=== PATIENT | male | born 1965 | race Caucasian/White ===

== ENCOUNTER 2017-10-13 15:46 | Observation (INO) | payer SELFPAY ==
[~2017-10-13] VITALS: Ht 185.4 cm; Wt 90.0 kg
[2017-10-13 16:15] VITALS: BP 134/82; PULSE 98; RESP 20; O2SAT 98
[2017-10-13 16:26] VITALS: BP 179/91; PULSE 98; RESP 19; TEMP 98.8; O2SAT 99
[2017-10-13] MEDS ORDERED: LISI10TA PO (16:32)
[2017-10-13] MEDS ORDERED: TYLETAB34 PO (16:34)
[2017-10-13 16:45] VITALS: BP 155/80; PULSE 96; RESP 18; O2SAT 99
[2017-10-13] MEDS ORDERED: SODIUM CHLOR 0.9% 1000 ML INJ 1,000 ML IV ONE ×2 (17:30)
[2017-10-13 17:42] LABS: AUTOMATED NEUTROPHIL # 11.9 TH/MM3 (1.8-7.7); BASOPHIL % 0.2 % (0.0-2.0); EOSINOPHIL % 0.1 % (0.0-4.0); HEMATOCRIT 42.2 % (39.0-51.0); HEMOGLOBIN 14.7 GM/DL (13.0-17.0); LYMPH % 10.6 % (9.0-44.0); LYMPHOCYTE # 1.5 TH/MM3 (1.0-4.8); MEAN CORPUSCULAR HEMOGLOBIN 31.7 PG (27.0-34.0); MEAN CORPUSCULAR HGB CONC 34.9 % (32.0-36.0); MEAN PLATELET VOLUME 8.7 FL (7.0-11.0); MONOCYTE # 0.9 TH/MM3 (0-0.9); NEUT % 83.1 % (16.0-70.0); PLATELET COUNT 290 TH/MM3 (150-450); RED BLOOD COUNT 4.63 MIL/MM3 (4.50-5.90); RED CELL DISTRIBUTION WIDTH 12.6 % (11.6-17.2); WHITE BLOOD COUNT 14.3 TH/MM3 (4.0-11.0)
[2017-10-13 18:05] LABS: BLOOD UREA NITROGEN 15 MG/DL (7-18); CALCIUM 9.6 MG/DL (8.5-10.1); CHLORIDE 99 MEQ/L (98-107); CREATININE 1.09 MG/DL (0.60-1.30); GLOMERULAR FILTRATION RATE 71 ML/MIN (>89); GLUCOSE,RANDOM 133 MG/DL (74-106); SODIUM (NA) 135 MEQ/L (136-145)
--- NOTE | 2017-10-13 18:07 | PD ---
HPI Chief Complaint: Dizziness Time Seen by Provider: 17:19 Travel History International Travel<30 days: No Contact w/Intl Traveler<30days: No Traveled to known affect area: No History of Present Illness HPI This is a 52-year-old male with a history of chronic back pain, presents today after having a syncopal episode while at a restaurant. Patient apparently was eating with his friend when he suddenly became lightheaded and pale. Friend states that he passed out for roughly 2 minutes total. When he awoke, there was no postictal state. He did not recall actually passing out but did really remember feeling funny. Friend thought that he was either vasovagal or was mildly dehydrated. He states that they brought him home and he had a second episode where he nearly passed out. His friend who is a accessibility lift technician states he checked his pulse and blood pressure. His systolic blood pressure was 80. He states that he felt an irregular pulse and was concerned that this may be atrial fibrillation. He reports that he started to regain his function and they drove here for further evaluation. The patient denies any pain. He denies any history of abnormal heart rhythm or previous syncopal episodes. There are no other complaints at time of examination. PFSH Past Medical History Asthma: No Autoimmune Disease: No Cardiovascular Problems: Yes COPD: No Genitourinary: No Hypertension: Yes Musculoskeletal: Yes Neurologic: Yes (herniated discs) Respiratory: Yes Past Surgical History Oral Surgery: Yes Other Surgery: Yes Social History Alcohol Use: Yes (WINE 4 GLASSES A WEEK 02/23/05) Tobacco Use: No Substance Use: No Allergies-Medications (Allergen,Severity, Reaction): Coded Allergies: No Known Allergies (Verified Allergy, Severe, 03/02/05) Reported Meds & Prescriptions Reported Meds & Active Scripts Active Reported Tylenol-Codeine #3 (Acetaminophen-Codeine) 300-30 mg Tab 1 Tab PO Q4H PRN Review of Systems Except as stated in HPI: all other systems reviewed are Neg General / Constitutional: No: Fever, Chills HENT: Positive: Lightheadedness, No: Headaches, Neck Pain Cardiovascular: Positive: Syncope, No: Chest Pain or Discomfort, Palpitations, Irregular Rhythm Respiratory: No: Cough, Shortness of Breath Gastrointestinal: No: Nausea, Vomiting, Abdominal Pain Genitourinary: No: Dysuria Musculoskeletal: No: Weakness, Pain Neurologic: Positive: Syncope, No: Dizziness, Headache, Change in Mentation Physical Exam Narrative GENERAL: Well developed well-nourished male in no acute respiratory distress. SKIN: Focused skin assessment warm/dry. HEAD: Atraumatic. Normocephalic. EYES: Pupils equal and round. No scleral icterus. No injection or drainage. ENT: No nasal bleeding or discharge. Mucous membranes pink and moist. NECK: Trachea midline. No JVD. CARDIOVASCULAR: Sinus tachycardia rate in the low 100s. RESPIRATORY: No accessory muscle use. Clear to auscultation. Breath sounds equal bilaterally. GASTROINTESTINAL: Abdomen soft, non-tender, nondistended. Hepatic and splenic margins not palpable. MUSCULOSKELETAL: No obvious deformities. No clubbing. No cyanosis. No edema. NEUROLOGICAL: Awake and alert. No obvious cranial nerve deficits. Motor grossly within normal limits. Normal speech. Data Data Last Documented VS Vital Signs Date Time Temp Pulse Resp B/P (MAP) Pulse Ox O2 Delivery O2 Flow Rate FiO2 10/13/17 19:19 106 16 98 Room Air 10/13/17 16:45 155/80 (105) 10/13/17 16:26 98.8 Orders Orders Complete Blood Count With Diff (10/13/17 17:22) Basic Metabolic Panel (Bmp) (10/13/17 17:22) Sodium Chlor 0.9% 1000 Ml Inj (Ns 1000 M (10/13/17 17:30) Sodium Chlor 0.9% 1000 Ml Inj (Ns 1000 M (10/13/17 17:30) Electrocardiogram (10/13/17 16:33) Drug Screen, Random Urine (10/13/17 17:53) Ckmb (Isoenzyme) Profile (10/13/17 17:25) Troponin I (10/13/17 17:25) Oxycodone-Acetamin 10-325 Mg (Percocet 1 (10/13/17 19:30) Diclofenac (Paulo Jacobsen) (10/13/17 19:30) Admit Order (Ed Use Only) (10/13/17 19:29) Labs Laboratory Tests Test 10/13/17 17:25 10/13/17 17:55 White Blood Count 14.3 TH/MM3 Red Blood Count 4.63 MIL/MM3 Hemoglobin 14.7 GM/DL Hematocrit 42.2 % Mean Corpuscular Volume 91.0 FL Mean Corpuscular Hemoglobin 31.7 PG Mean Corpuscular Hemoglobin Concent 34.9 % Red Cell Distribution Width 12.6 % Platelet Count 290 TH/MM3 Mean Platelet Volume 8.7 FL Neutrophils (%) (Auto) 83.1 % Lymphocytes (%) (Auto) 10.6 % Monocytes (%) (Auto) 6.0 % Eosinophils (%) (Auto) 0.1 % Basophils (%) (Auto) 0.2 % Neutrophils # (Auto) 11.9 TH/MM3 Lymphocytes # (Auto) 1.5 TH/MM3 Monocytes # (Auto) 0.9 TH/MM3 Eosinophils # (Auto) 0.0 TH/MM3 Basophils # (Auto) 0.0 TH/MM3 CBC Comment DIFF FINAL Differential Comment Blood Urea Nitrogen 15 MG/DL Creatinine 1.09 MG/DL Random Glucose 133 MG/DL Calcium Level 9.6 MG/DL Sodium Level 135 MEQ/L Potassium Level 3.9 MEQ/L Chloride Level 99 MEQ/L Carbon Dioxide Level 23.0 MEQ/L Anion Gap 13 MEQ/L Estimat Glomerular Filtration Rate 71 ML/MIN Total Creatine Kinase 77 U/L Troponin I LESS THAN 0.02 NG/ML Urine Opiates Screen POS Urine Barbiturates Screen NEG Urine Amphetamines Screen NEG Urine Benzodiazepines Screen NEG Urine Cocaine Screen NEG Urine Cannabinoids Screen POS MDM Medical Decision Making Medical Screen Exam Complete: Yes Emergency Medical Condition: Yes Differential Diagnosis Vasovagal syncope versus cardiac dysrhythmia versus metabolic derangement Narrative Course 52-year-old male presents today after having syncopal episode and a following near syncopal episode. Patient was tachycardic when he presented. He was given 2 L of IV fluid and still remains tachycardic with heart rate of 100. Given this, patient will be admitted. I discussed case with the on-call hospitalist who is agreeable for an observation admission. The patient has no prior history of syncope. He does have acute on chronic back pain. He was given Voltaren and Percocet for his chronic back pain. Diagnosis Primary Impression: Syncope Additional Impressions: HTN (hypertension) Chronic back pain Admitting Information Admitting Physician Requests: Observation Montana Novoa MD Oct 13, 2017 18:07
[2017-10-13 18:21] LABS: TROPONIN I LESS THAN 0.02 NG/ML (0.02-0.05)
[2017-10-13] MEDS ORDERED: DICLOFENAC SODIUM 50 MG DELAYED RELEASE TAB PO ONE (19:30)
[2017-10-13] MEDS ORDERED: oxyCODONE/ACETAMINOPHEN 10 MG/325 MG TAB PO ONE (19:30)
[2017-10-13] MEDS ORDERED: NALOXONE HCL 0.4 MG/ML AMP IV PUSH PRN (20:00)
[2017-10-13] MEDS ORDERED: ACETAMINOPHEN 325 MG TAB PO PRN (20:00)
[2017-10-13] MEDS ORDERED: ONDANSETRON HCL 4 MG/2 ML VIAL IVP PRN (20:00)
[2017-10-13] MEDS ORDERED: SODIUM CHLORIDE 0.9% FLUSH 10 ML FLUSH IV FLUSH PRN (20:00)
[2017-10-13 20:40] VITALS: BP 152/76; PULSE 104; RESP 16; O2SAT 100
--- NOTE | 2017-10-13 21:15 | HHI.HP ---
[facility] Jose Elias Dinero MD Admission Diagnosis syncope, persistant tachycardia, chronic back pain Diagnoses: Travel History International Travel<30 Days: No Contact w/Intl Traveler <30 Da: No Traveled to Known Affected Are: No History of Present Illness 52-year-old male with a past medical history significant for hypertension and degenerative disc disease presents to the emergency department for evaluation of a syncopal episode. Patient reports that he was at 120 felt dizzy, faint and diaphoretic. He slumped over and lost consciousness for approximately 2 minutes which was witnessed by a friend. No seizure-like activity. No loss of bowel/bladder. The patient decided to go home to rest and he was lying on the couch. When he went to sit up from lying down he became diaphoretic and dizzy again. This time he did not lose consciousness. His friend took his blood pressure and found it to be 84/52. The patient takes antihypertensive medication and an unspecified narcotic for his back pain. He denies any chest pain or shortness of breath. No nausea/vomiting/diarrhea/abdominal pain. No lateralizing signs/symptoms. No fever/chills. Review of Systems Except as stated in HPI: all other systems reviewed are Neg Past Family Social History Past Medical History Hypertension Degenerative disc disease Past Surgical History Back surgery Tonsillectomy Reported Medications Reported Meds & Active Scripts Active Reported Tylenol-Codeine #3 (Acetaminophen-Codeine) 300-30 mg Tab 1 Tab PO Q4H PRN Lisinopril-Hctz 10-12.5 Mg Tab Unknown Dose PO DAILY Allergies: Coded Allergies: No Known Allergies (Verified Allergy, Severe, 03/02/05) Family History Negative for CAD/DM Social History Negative for tobacco. Occasional alcohol. Denies all illicit drugs Physical Exam Vital Signs Vital Signs Date Time Temp Pulse Resp B/P (MAP) Pulse Ox O2 Delivery O2 Flow Rate FiO2 10/13/17 20:40 104 16 152/76 (101) 100 Room Air 10/13/17 19:19 106 16 98 Room Air 4/26/18 16:45 96 18 155/80 (105) 99 Room Air 10/13/17 16:26 98.8 98 19 179/91 (120) 99 Room Air 10/13/17 16:15 98 20 134/82 (99) 98 Physical Exam GENERAL: male sitting up in bed SKIN: No rashes, ecchymoses or lesions. Cool and dry. HEAD: Atraumatic. Normocephalic. No temporal or scalp tenderness. EYES: Pupils equal round and reactive. Extraocular motions intact. No scleral icterus. No injection or drainage. ENT: Nose without bleeding, purulent drainage or septal hematoma. Throat without erythema, tonsillar hypertrophy or exudate. Uvula midline. Airway patent. NECK: Trachea midline. No JVD or lymphadenopathy. Supple, nontender, no meningeal signs. CARDIOVASCULAR: Regular rate and rhythm without murmurs, gallops, or rubs. RESPIRATORY: Clear to auscultation. Breath sounds equal bilaterally. No wheezes , rales, or rhonchi. GASTROINTESTINAL: Abdomen soft, non-tender, nondistended. No hepato-splenomegaly , or palpable masses. No guarding. MUSCULOSKELETAL: Extremities without clubbing, cyanosis, or edema. No joint tenderness, effusion, or edema noted. No calf tenderness. NEUROLOGICAL: Awake and alert. Cranial nerves II through XII intact. Motor and sensory grossly within normal limits. Normal speech. Laboratory Laboratory Tests Test 10/13/17 17:25 10/13/17 17:55 White Blood Count 14.3 Red Blood Count 4.63 Hemoglobin 14.7 Hematocrit 42.2 Mean Corpuscular Volume 91.0 Mean Corpuscular Hemoglobin 31.7 Mean Corpuscular Hemoglobin Concent 34.9 Red Cell Distribution Width 12.6 Platelet Count 290 Mean Platelet Volume 8.7 Neutrophils (%) (Auto) 83.1 Lymphocytes (%) (Auto) 10.6 Monocytes (%) (Auto) 6.0 Eosinophils (%) (Auto) 0.1 Basophils (%) (Auto) 0.2 Neutrophils # (Auto) 11.9 Lymphocytes # (Auto) 1.5 Monocytes # (Auto) 0.9 Eosinophils # (Auto) 0.0 Basophils # (Auto) 0.0 CBC Comment DIFF FINAL Differential Comment Blood Urea Nitrogen 15 Creatinine 1.09 Random Glucose 133 Calcium Level 9.6 Sodium Level 135 Potassium Level 3.9 Chloride Level 99 Carbon Dioxide Level 23.0 Anion Gap 13 Estimat Glomerular Filtration Rate 71 Total Creatine Kinase 77 Troponin I LESS THAN 0.02 Urine Opiates Screen POS Urine Barbiturates Screen NEG Urine Amphetamines Screen NEG Urine Benzodiazepines Screen NEG Urine Cocaine Screen NEG Urine Cannabinoids Screen POS Result Diagram: 10/13/17172410/13/171724 Caprin[place] VTE Risk Assessment Caprini VTE Risk Assessment: No/Low Risk (score <= 1) Caprini Risk Assessment Model Point Value = 1 Point Value = 2 Point Value = 3 Point Value = 5 Age 41-60 Minor surgery BMI > 25 kg/m2 Swollen legs Varicose veins or History of unexplained or recurrent spontaneous Oral contraceptives or hormone replacement Sepsis (< 1 month) Serious lung disease, including pneumonia (< 1 month) Abnormal pulmonary function Acute myocardial infarction Congestive heart failure (< 1 month) History of inflammatory bowel disease Medical patient at bed rest Age 61-74 Arthroscopic surgery Major open surgery (> 45 min) Laparoscopic surgery (> 45 min) Malignancy Confined to bed (> 72 hours) Immobilizing plaster cast Central venous access Age >= 75 History of VTE Family history of VTE Factor V Leiden Prothrombin [id number] Lupus anticoagulant Anticardiolipin antibodies Elevated serum homocysteine Heparin-induced thrombocytopenia Other congenital or acquired thrombophilia Stroke (< 1 month) Elective arthroplasty Hip, pelvis, or leg fracture Acute spinal cord injury (< 1 month) Prophylaxis Regimen Total Risk Factor Score Risk Level Prophylaxis Regimen 0-1 Low Early ambulation 2 Moderate Order ONE of the following: *Sequential Compression Device (SCD) *Heparin 5000 units SQ BID 3-4 Higher Order ONE of the following medications: *Heparin 5000 units SQ TID *Enoxaparin/Lovenox 40 mg SQ daily (WT < 150 kg, CrCl > 30 mL/min) *Enoxaparin/Lovenox 30 mg SQ daily (WT < 150 kg, CrCl > 10-29 mL/min) *Enoxaparin/Lovenox 30 mg SQ BID (WT < 150 kg, CrCl > 30 mL/min) AND/OR *Sequential Compression Device (SCD) 5 or more Highest Order ONE of the following medications: *Heparin 5000 units SQ TID (Preferred with Epidurals) *Enoxaparin/Lovenox 40 mg SQ daily (WT < 150 kg, CrCl > 30 mL/min) *Enoxaparin/Lovenox 30 mg SQ daily (WT < 150 kg, CrCl > 10-29 mL/min) *Enoxaparin/Lovenox 30 mg SQ BID (WT < 150 kg, CrCl > 30 mL/min) AND *Sequential Compression Device (SCD) Assessment and Plan Assessment and Plan Assessment/plan: 1. Syncope Unclear etiology May be vasovagal or secondary to orthostatic hypotension Orthostatic vital signs pending Carotid ultrasound/echo pending 2. Tachycardia Unclear etiology Patient in normal sinus rhythm Telemetry 3. Hypertension Continue lisinopril-HCTZ as patient currently hypertensive FEN Heart healthy diet Electrolytes: Monitor and replete as needed Shena Davies MD Oct 13, 2017 21:15
[2017-10-13 22:03] VITALS: BP_SYST 115; BP_SYST 122; BP_SYST 130; BP_DIAS 69; BP_DIAS 77; BP_DIAS 78; PULSE 95; RESP 18; TEMP 98.6; O2SAT 98
--- NOTE | 2017-10-13 22:18 | RADRPT ---
EXAM DATE/TIME: 10/13/2017 20:47 [facility] COMPARISON: No previous studies available for comparison. INDICATIONS : Syncope MEDICAL HISTORY : Herniated discs. SURGICAL HISTORY : None. ENCOUNTER: Initial ACUITY: 1 day PAIN SCORE: 0/10 LOCATION: Bilateral neck PEAK SYSTOLIC VELOCITIES (cm/sec): ICA/CCA RATIO: Right: 1.36 Left: 1.39 ICA: Right: 163 Left: 175 CCA: Right: 120 Left: 126 ECA: Right: 129 Left: 168 VERTEBRAL: Right: 59 antegrade Left: 60 antegrade Elevated flow velocities and ICA/CCA ratios have been found to correlate with increased degrees of vessel stenosis, calculated as percentage of diameter relative to a normal segment of distal ICA/CCA FINDINGS: RIGHT CAROTID: No significant stenosis is visualized. The waveforms are within normal limits. LEFT CAROTID: No significant stenosis is visualized. The waveforms are within normal limits. VERTEBRAL ARTERIES: Antegrade flow is seen in both vertebral arteries. MISCELLANEOUS: None. CONCLUSION: No significant plaque or narrowing. Ian Corral MD on October 13, 2017 at 22:15 Board Certified Radiologist. This report was verified electronically.
[2017-10-13] MEDS: ACETAMINOPHEN/HYDROcodone 325 MG/7.5 MG TAB PO PRN (22:22)
[2017-10-13] MEDS: SODIUM CHLORIDE 0.9% FLUSH 10 ML FLUSH IV FLUSH SCH (22:23)
[2017-10-14] VITALS (9 sets, daily range): BP systolic 115–135; BP diastolic 56–87; PULSE 72–87; RESP 16–18; TEMP 97.8–98.7; O2SAT 97–99
[2017-10-14] MEDS: ACETAMINOPHEN/HYDROcodone 325 MG/7.5 MG TAB PO PRN ×6 (02:20→22:43)
[2017-10-14 07:18] LABS: AUTOMATED NEUTROPHIL # 3.1 TH/MM3 (1.8-7.7); BASOPHIL % 0.5 % (0.0-2.0); EOSINOPHIL % 0.6 % (0.0-4.0); HEMATOCRIT 38.2 % (39.0-51.0); HEMOGLOBIN 13.6 GM/DL (13.0-17.0); LYMPH % 42.7 % (9.0-44.0); LYMPHOCYTE # 2.8 TH/MM3 (1.0-4.8); MEAN CELL VOLUME 89.9 FL (80.0-100.0); MEAN CORPUSCULAR HGB CONC 35.6 % (32.0-36.0); MEAN PLATELET VOLUME 8.3 FL (7.0-11.0); MONO % 8.6 % (0.0-8.0); MONOCYTE # 0.6 TH/MM3 (0-0.9); NEUT % 47.6 % (16.0-70.0); PLATELET COUNT 254 TH/MM3 (150-450); RED BLOOD COUNT 4.25 MIL/MM3 (4.50-5.90); RED CELL DISTRIBUTION WIDTH 12.6 % (11.6-17.2); WHITE BLOOD COUNT 6.5 TH/MM3 (4.0-11.0)
[2017-10-14 07:54] LABS: BICARBONATE 26.5 MEQ/L (21.0-32.0); CALCIUM 9.3 MG/DL (8.5-10.1); CREATININE 0.8 MG/DL (0.60-1.30)
[2017-10-14] MEDS ORDERED: LISINOPRIL 10 MG TAB PO SCH (09:00)
[2017-10-14] MEDS: SODIUM CHLORIDE 0.9% FLUSH 10 ML FLUSH IV FLUSH SCH ×2 (09:00→22:43)
[2017-10-14] MEDS ORDERED: HYDROCHLOROTHIAZIDE 12.5 MG CAP PO SCH (09:00)
--- NOTE | 2017-10-14 10:28 | HHI.PR ---
Subjective Remarks Follow-up on patient with syncopal episode. Patient seen and examined. Patient denies any acute medical complaints at this time. States he did get up once earlier this morning to use the urinal at the bedside and did not have any episodes of dizziness or lightheadedness. He denies any fever or chills. He denies any chest pain or dyspnea. He denies any nausea, vomiting or abdominal pain. He denies any urinary to bowel difficulties. Patient reports being at [facility] yesterday sitting down eating a salad when snf through the meal patient became diaphoretic, dizzy lost his vision and passed out for several minutes. Patient denies any associated palpitations, chest pain, shortness of breath, nausea or vomiting. Shortly after returning home, patient had a similar episode when getting up from a supine position. He reports his friend who is a tearer checked his pulse and told him that he had an irregular rhythm. He denies any seizure activity, loss of bowel or bladder incontinence, tongue biting, postictal confusion. Objective Vitals Vital Signs Date Time Temp Pulse Resp B/P (MAP) Pulse Ox O2 Delivery O2 Flow Rate FiO2 10/14/17 09:41 20 10/14/17 07:41 98.7 72 18 118/78 (91) 98 10/14/17 03:47 98.4 77 16 119/56 (77) 98 10/14/17 03:18 75 10/14/17 00:33 98.5 86 16 118/70 (86) 97 10/14/17 00:01 87 10/13/17 22:03 98.6 95 18 122/69 (86) 98 130/77 (94) 115/78 (90) 10/13/17 21:38 10/13/17 20:40 104 16 152/76 (101) 100 Room Air 10/13/17 19:19 106 16 98 Room Air 10/13/17 16:45 96 18 155/80 (105) 99 Room Air 10/13/17 16:26 98.8 98 19 179/91 (120) 99 Room Air 10/13/17 16:15 98 20 134/82 (99) 98 Result Diagram: 10/14/17 0622 10/14/1722 Imaging Last Impressions Carotid Artery Ultrasound 10/13/17 0000 Signed Impressions: Service Date/Time: September 20:47 - CONCLUSION: No significant plaque or narrowing. Ian Corral MD Objective Remarks GENERAL: Well-developed well-nourished male patient, in no acute distress. Awake and alert. Lying in hospital bed. SKIN: No rashes, ecchymoses or lesions. Cool and dry. HEAD: Atraumatic. Normocephalic. No temporal or scalp tenderness. EYES: Pupils equal round and reactive. Extraocular motions intact. No scleral icterus. No injection or drainage. ENT: Nose without bleeding or purulent drainage. Airway patent. MMM. NECK: Trachea midline. No JVD or lymphadenopathy. Supple, nontender, no meningeal signs. CARDIOVASCULAR: Regular rate and rhythm without murmurs, gallops, or rubs. RESPIRATORY: Clear to auscultation. Breath sounds equal bilaterally. No wheezes , rales, or rhonchi. GASTROINTESTINAL: Abdomen soft, non-tender, nondistended. No hepato-splenomegaly , or palpable masses. No guarding. MUSCULOSKELETAL: Extremities without clubbing, cyanosis, or edema. No calf tenderness. NEUROLOGICAL: Awake and alert. Cranial nerves II through XII grossly intact. Motor and sensory grossly within normal limits. Normal speech. PSYCHIATRIC: Appropriate mood and affect. Normal judgement and insight. Procedures None Medications and IVs Current Medications Medications (Trade) Dose Ordered Sig/Yanick Route Start Time Stop Time Status Last Admin (NS Flush) 2 ml UNSCH PRN IV FLUSH 10/13/17 20:00 (NS Flush) 2 ml BID IV FLUSH 10/13/17 21:00 10/13/17 22:23 (Tylenol) 650 mg Q4H PRN PO 10/13/17 20:00 (Zofran Inj) 4 mg Q6H PRN IVP 10/13/17 20:00 (Narcan Inj) 0.4 mg UNSCH PRN IV PUSH 10/13/17 20:00 (Prinivil) 10 mg DAILY PO 10/14/17 09:00 Future Hold (Microzide) 12.5 mg DAILY PO 10/14/17 09:00 Future Hold ([place] 7.5-325 Mg) 1 tab Q4H PRN PO 10/13/17 21:15 10/14/17 06:25 A/P Assessment and Plan 52-year-old male with a past medical history significant for hypertension and degenerative disc disease presents to the emergency department for evaluation of a syncopal episode. Syncope Unclear etiology, may be vasovagal or secondary to orthostatic hypotension or opiate/THC related UDS positive for opiates and cannabis Patient reports episode of diaphoresis, dizziness, tunnel vision, reported abnormal rhythm followed by syncopal episode of 2mins duration Orthostatic vital signs negative Carotid ultrasound negative for hemodynamically significant stenosis -Given concern for possible arrhythmogenic etiology of patient's syncopal episode will consult cardiology. Appreciate recommendations. -Repeat orthostatic vital signs -Follow-up on echocardiogram results -Holter monitor -PT eval/tx Tachycardia Unclear etiology, possibly situational Patient in normal sinus rhythm -continue to monitor on telemetry Leukocytosis, resolved Suspect reactive Patient is afebrile -Continue to monitor white count as indicated Hyponatremic Resolved status post IV fluids Hypertension, currently normotensive -Hold patient's home lisinopril-HCTZ for now -Continue to monitor BP and adjust treatment accordingly Chronic back pain -[place] as needed FEN Heart healthy diet Electrolytes: Monitor and replete as needed Discharge Planning Discharge pending completion of workup and cardiology clearance Angie Hawkins Oct 14, 2017 10:28
--- NOTE | 2017-10-14 11:37 | MB ---
cc: Rolando Castle DO DATE: 10/14/2017 REASON FOR CONSULTATION: Syncope. HISTORY OF PRESENT ILLNESS: Aguilar Schulz is a pleasant 52-year-old male who presented to [facility] Emergency Room on 10/13/2017 after 2 syncopal episodes. He states that he had a normal day and friends were visiting from out of town. They were out to lunch and he had eaten part of his meal. He started feeling lightheaded, having some tunnel vision and diaphoretic, but no chest pain, shortness of breath or palpitations. He then passed out for approximately 2 minutes. During this, no seizure activity or loss of bowel or bladder. When he came to, there was no postictal phase. He just felt overall weak. EMS had been called at the time, but they decided that he was feeling a little bit better and so they canceled EMS. He went home and was resting on the couch and felt like he had to use the restroom. He went from laying down to sitting and had a similar type feeling that he was going to pass out, but did not pass out this time. He felt extremely dizzy and his friend states that he was extremely diaphoretic. His friend took his blood pressure and it was around 80/50. He also felt his pulse and felt that it was somewhat irregular. Because of that, he was brought to the emergency room. On arrival to the emergency room, blood pressure and heart rate were stable. In seeing him, he currently denies chest pain, shortness of breath, or palpitations at this time. Of note, he is on antihypertensives, but has been on lisinopril/hydrochlorothiazide for around 10 years without problems. He also takes pain medication for back pain and has taken them in the normal fashion in the past and has taken them in a similar manner for the past 4-5 weeks with no changes. PAST MEDICAL HISTORY: 1. Hypertension. 2. Degenerative disc disease. PAST SURGICAL HISTORY: 1. Back surgery. 2. Tonsillectomy. ALLERGIES: NO KNOWN DRUG ALLERGIES. MEDICATIONS: 1. Lisinopril/hydrochlorothiazide 10/12.5 mg daily. 2. Tylenol with codeine #3, 300/30 one tab every 4 hours as needed for pain. FAMILY HISTORY: Denies premature coronary artery disease or sudden cardiac within the family. SOCIAL HISTORY: The patient denies tobacco or illicit drug abuse. He has been on pain medication for his back for the past 4-5 weeks. He occasionally drinks alcohol. REVIEW OF SYSTEMS: Fourteen systems were reviewed including osteopathic pertinent positives and negatives as above, otherwise negative. PHYSICAL EXAMINATION: VITAL SIGNS: Temperature 98.7, heart rate 72, blood pressure 118/78, respirations 18, pulse oximetry 98% on room air. GENERAL: The patient appears well, no acute distress, alert, awake and oriented x 3. HEENT: Extraocular muscles intact. Mucous membranes moist. NECK: Supple. No JVD at 45 degrees. No carotid bruits heard bilaterally. Carotid upstroke is brisk in nature. HEART: Regular rate and rhythm. Positive first and second heart sounds with no murmurs, gallops or rubs. LUNGS: Clear to auscultation bilaterally. No wheezes, rales or rhonchi. ABDOMEN: Soft, nontender, nondistended. No organomegaly noted. EXTREMITIES: Show no clubbing, cyanosis or edema. Femoral and distal pulses are intact bilaterally. NEUROLOGIC: No focal deficits. SKIN: Warm, dry and intact. OSTEOPATHICALLY: No kyphoscoliosis, lordosis or paraspinal tender points. LABORATORY DATA: Hemoglobin 13.6, hematocrit 38.2, platelet 254. Potassium 3.9, BUN 12, creatinine 0.80. Troponin less than 0.02. Electrocardiogram (10/13/2017 16:33) sinus tachycardia, otherwise no significant ST-T wave changes. IMPRESSIONS: 1. Syncopal episode x 2. 2. Hypertension. RECOMMENDATIONS: 1. Mr. Schulz appears to have had 2 syncopal episodes which have an unclear etiology. 2. He did present slightly dehydrated, although the syncopal episode should not happen while sitting down and lying down due to dehydration. 3. I do not feel that he has any reason to have vasovagal syncope. 4. He does have concern with his symptoms of feeling like he is going to black out of neurocardiogenic syncope and I will have him evaluated by Dr. Yanes. Plan for a possible EP study in my discussion with Dr. Yanes. 5. We will check a 2-D echo to look at his overall left ventricular function, cardiac structure and possible valvulopathies. 6. We will continue to hold his lisinopril/hydrochlorothiazide at this time until further evaluation. Thank you for allowing me to see Aguilar Schulz. If there are any questions, please do not hesitate to call. Rolando Castle DO VGP/DL , 11:10 AM , 11:36 AM
--- NOTE | 2017-10-14 13:39 | EKG ---
Date Performed: 10/13/2017 Time Performed: 16:33:18 PTAGE: 52 years EKG: SINUS TACHYCARDIA ABNORMAL RHYTHM ECG NO PREVIOUS TRACING DOCTOR: Sharif Carrizales Interpretating Date/Time 10/14/2017 13:36:32
--- NOTE | 2017-10-14 14:27 | ECHRPT ---
Indication: Syncope CONCLUSIONS The left ventricular systolic function is low normal with an estimated ejection fraction in the rang e of 50- 55%. Trace mitral valve regurgitation. There is trace tricuspid valve regurgitation. Trivial pulmonary valve regurgitation. BP: 118 / 78 HR: 83 Rhythm: Sinus MEASUREMENTS (Male / Female) Normal Values Technical Quality:Fair 2D ECHO LV Diastolic Diameter PLAX 4.6 cm 4.2 - 5.9 / 3.9 - 5.3 cm LV Systolic Diameter PLAX 3.3 cm IVS Diastolic Thickness 0.9 cm 0.6 - 1.0 / 0.6 - 0.9 cm LVPW Diastolic Thickness 0.9 cm 0.6 - 1.0 / 0.6 - 0.9 cm LV Relative Wall Thickness 0.4 RV Internal Dim ED PLAX 3.6 cm LVOT Diameter 2.2 cm LA Systolic Diameter LX 2.6 cm 3.0 - 4.0 / 2.7 - 3.8 cm M-MODE Aortic Root Diameter MM 3.2 cm LA Systolic Diameter MM 2.9 cm LA Ao Ratio MM 0.9 AV Cusp Separation MM 2.3 cm DOPPLER AV Peak Velocity 98.9 cm/s AV Peak Gradient 3.9 mmHg LVOT Peak Velocity 83.3 cm/s LVOT Peak Gradient 2.8 mmHg AV Area Cont Eq pk 3.2 cm MV Area PHT 2.8 cm Mitral E Point Velocity 63.2 cm/s Mitral A Point Velocity 40.9 cm/s Mitral E to A Ratio 1.5 LV E' Lateral Velocity 10.1 cm/s Mitral E to LV E' Lateral Ratio 6.3 LV E' Septal Velocity 10.6 cm/s Mitral E to LV E' Septal Ratio 6.0 TR Peak Velocity 191.0 cm/s TR Peak Gradient 14.6 mmHg Right Atrial Pressure 10.0 mmHg Pulmonary Artery Systolic Pressu 24.6 mmHg Right Ventricular Systolic Press 24.6 mmHg FINDINGS LEFT VENTRICLE The left ventricular systolic function is low normal with an estimated ejection fraction in the rang e of 50- 55%. Wall thickness is normal. Normal left ventricular size. No obvious wall motion abnormalities RIGHT VENTRICLE Normal right ventricular size and systolic function. LEFT ATRIUM The left atrial size is normal. RIGHT ATRIUM The right atrial size is normal. ATRIAL SEPTUM Normal atrial septal thickness AORTA The aortic root and proximal ascending aorta are normal in size on limited imaging. MITRAL VALVE Structurally normal mitral valve. Trace mitral valve regurgitation. No mitral valve stenosis. AORTIC VALVE Trileaflet aortic valve. No aortic valve stenosis. TRICUSPID VALVE Structurally normal tricuspid valve. There is trace tricuspid valve regurgitation. The estimated pulmonary arterial pressure is 24.6 mmHg. PULMONARY VALVE Trivial pulmonary valve regurgitation. VESSELS The inferior vena cava is normal in size. PERICARDIUM No pericardial effusion. Rolando Castle DO (Electronically Signed) Final Date:14 October 2017 14:26
--- NOTE | 2017-10-14 15:17 | MB ---
cc: Marco Yanes MD, Jose R MD DATE: 10/14/2017 REASON FOR CONSULTATION: Syncopal episode. HISTORY OF PRESENT ILLNESS: Mr. Schulz is a 52-year-old gentleman with history of high blood pressure, previous back surgery. He was at a restaurant, felt dizzy and fainted. He completely passed out, based on his friend, for at least 2 minutes. They decided not to call 911. They went home. Sitting in the car the same episode happened again and at that point, he decided to come to the emergency room. There was not loss of sphincter control and no seizing. The patient was evaluated by Dr. Castle who believed this is not hypotension nor dehydration and patient was consulted for evaluation. The chart was reviewed. The patient was evaluated. The patient did not drink any alcohol. ALLERGIES: None. SOCIAL HISTORY: The patient has an occasional drink. FAMILY HISTORY: Noncontributory to his current medical condition. MEDICATIONS: He is takin. Tylenol # 3 p.r.n. 2. Lisinopril/hydrochlorothiazide. REVIEW OF SYSTEMS: He referred no chest pain, no chest discomfort, no palpitation. No dizziness. No seizures. No vomiting. PHYSICAL EXAMINATION: GENERAL: Alert, fully oriented. VITAL SIGNS: Blood pressure is 122/77, pulse 76, respiratory rate 18. LUNGS: Ventilated. CARDIOVASCULAR: S1, S2. No gallop. No murmur. ABDOMEN: Soft. No mass. No bruits. EXTREMITIES: No edema. LABORATORY DATA: Electrocardiogram shows sinus rhythm, rate in the low 100s. No acute ST and T-wave changes. LABORATORY DATA: Hemoglobin is 13.6, white blood cell 6.5. Toxicology positive for cannabis and urine positive for opioid screen, yet the patient is taking Tylenol #3. Potassium 3.9, creatinine 0.80. Troponin less than 0.2. ASSESSMENT AND RECOMMENDATIONS: Mr. Schulz had a syncopal episode. There was no warning. He referred in the past some dizziness and near-syncope. Blood pressure currently adequate. There is no acute ST and T-wave changes. I had a long conversation with him as well as Dr. Castle. Electrophysiology study will be obtained. If no conduction disease is found or no arrhythmia induced, then the gentleman would need a loop recorder. The risks, the nature and the benefits of the procedure were clearly stated to him. Risks include pneumothorax, cardiac perforation, stroke and even . He understands and agreed to proceed. I will wait for the 2-D echo report before making further decisions about management. MD ANA Page/SB , 02:14 PM , 03:16 PM
[2017-10-15 03:36] VITALS: BP 118/74; PULSE 89; RESP 16; TEMP 98.5; O2SAT 99
[2017-10-15] MEDS: ACETAMINOPHEN/HYDROcodone 325 MG/7.5 MG TAB PO PRN ×2 (03:59→08:44)
[2017-10-15 07:31] VITALS: PULSE 60
[2017-10-15 08:00] VITALS: BP_SYST 129; BP_SYST 155; BP_DIAS 78; BP_DIAS 82; BP_DIAS 91; PULSE 73; RESP 20; TEMP 97.1; O2SAT 98
[2017-10-15] MEDS: SODIUM CHLORIDE 0.9% FLUSH 10 ML FLUSH IV FLUSH SCH (08:37)
--- NOTE | 2017-10-15 09:02 | HHI.PR ---
Subjective Remarks Follow-up on patient with syncopal episode. Patient seen and examined. Patient has had no further episodes of dizziness, lightheadedness or syncope since admission. He denies any chest pain or dyspnea. He denies any nausea, vomiting or abdominal pain. He denies any bladder or bowel difficulties. His echocardiogram shows low normal EF 50-55%. He is requesting a pain pill for his back pain. Objective Vitals Vital Signs Date Time Temp Pulse Resp B/P (MAP) Pulse Ox O2 Delivery O2 Flow Rate FiO2 10/15/17 07:31 60 10/15/17 03:36 98.5 89 16 118/74 (89) 99 10/14/17 23:19 98.2 74 16 115/71 (86) 98 10/14/17 20:03 98.2 86 17 124/72 (89) 97 10/14/17 16:10 98.7 79 18 125/75 (92) 99 10/14/17 15:49 18 10/14/17 12:44 97.8 76 18 126/70 (88) 97 123/77 (92) 135/87 (103) I/O 10/14/17 10/14/17 10/14/17 10/15/17 10/15/17 10/15/17 07:00 15:00 23:00 07:00 15:00 23:00 Intake Total 150 ml Balance 150 ml TPN/PPN 150 ml Result Diagram: 10/14/17 0622 10/14/17 0622 Imaging Last Impressions Carotid Artery Ultrasound 10/13/17 0000 Signed Impressions: Service Date/Time: September 20:47 - CONCLUSION: No significant plaque or narrowing. Ian Corral MD Objective Remarks GENERAL: Well-developed well-nourished male patient, in no acute distress. Awake and alert. Lying in hospital bed. Appears comfortable. SKIN: Warm and dry. HEAD: Atraumatic. Normocephalic. No temporal or scalp tenderness. EYES: Pupils equal round and reactive. Extraocular motions intact. No scleral icterus. No injection or drainage. ENT: Nose without bleeding or purulent drainage. Airway patent. MMM. NECK: Trachea midline. CARDIOVASCULAR: Regular rate and rhythm without murmurs, gallops, or rubs. RESPIRATORY: Clear to auscultation. Breath sounds equal bilaterally. No wheezes , rales, or rhonchi. GASTROINTESTINAL: Abdomen soft, non-tender, nondistended. No hepato-splenomegaly , or palpable masses. No guarding. MUSCULOSKELETAL: Extremities without clubbing, cyanosis, or edema. No calf tenderness. NEUROLOGICAL: Awake and alert. Cranial nerves II through XII grossly intact. Motor and sensory grossly within normal limits. Normal speech. PSYCHIATRIC: Appropriate mood and affect. Normal judgement and insight. Procedures None Medications and IVs Current Medications Medications (Trade) Dose Ordered Sig/Yanick Route Start Time Stop Time Status Last Admin (NS Flush) 2 ml UNSCH PRN IV FLUSH 10/13/17 20:00 (NS Flush) 2 ml BID IV FLUSH 10/13/17 21:00 10/14/17 22:43 (Tylenol) 650 mg Q4H PRN PO 10/13/17 20:00 (Zofran Inj) 4 mg Q6H PRN IVP 10/13/17 20:00 (Narcan Inj) 0.4 mg UNSCH PRN IV PUSH 10/13/17 20:00 (Prinivil) 10 mg DAILY PO 10/14/17 09:00 Future Hold (Microzide) 12.5 mg DAILY PO 10/14/17 09:00 Future Hold ([place] 7.5-325 Mg) 1 tab Q4H PRN PO 10/13/17 21:15 10/15/17 03:59 A/P Assessment and Plan 52-year-old male with a past medical history significant for hypertension and degenerative disc disease presents to the emergency department for evaluation of a syncopal episode. Syncope Unclear etiology, may be vasovagal or secondary to orthostatic hypotension or opiate/THC related UDS positive for opiates and cannabis Patient reports episode of diaphoresis, dizziness, tunnel vision, reported abnormal rhythm followed by syncopal episode of 2mins duration Orthostatic vital signs negative Carotid ultrasound negative for hemodynamically significant stenosis Echo shows low normal EF 50-55% Patient evaluated by Dr. Castle and Dr. Yanes -plan for outpatient EP and possible implantation of loop recorder this coming Tuesday. Patient will need to follow up with Dr. Yanes following discharge. -Holter monitor to be completed at 10am/follow up on results -PT eval recommends outpt PT for back pain management and to facilitate functional mobility and safety Tachycardia, resolved Unclear etiology, possibly situational Patient in normal sinus rhythm -continue to monitor on telemetry Leukocytosis, resolved Suspect reactive Patient is afebrile Hyponatremic Resolved status post IV fluids Hypertension Patient has remained normotensive off of BP medications -recommend discontinuing home BP med at discharge -Continue to monitor BP and adjust treatment accordingly Chronic back pain -[place] as needed FEN Heart healthy diet Electrolytes: Monitor and replete as needed Discharge patient to home Condition on discharge: Improved Heart healthy Diet as tolerated Ad Angela activity except NO DRIVING Rx written: None Follow-up with primary care physician and Dr. Yanes of interventional cardiology Discharge Planning Discharge pending cardiology clearance nAgie Hawkins Oct 15, 2017 09:02
--- NOTE | 2017-10-15 11:27 | PD.CARD.PN ---
Subjective Subjective Remarks Doing well over night, no complaints Objective Medications Current Medications Medications (Trade) Dose Ordered Sig/Yanick Route Start Time Stop Time Status Last Admin (NS Flush) 2 ml UNSCH PRN IV FLUSH 10/13/17 20:00 (NS Flush) 2 ml BID IV FLUSH 10/13/17 21:00 10/15/17 08:37 (Tylenol) 650 mg Q4H PRN PO 10/13/17 20:00 (Zofran Inj) 4 mg Q6H PRN IVP 10/13/17 20:00 (Narcan Inj) 0.4 mg UNSCH PRN IV PUSH 10/13/17 20:00 (Prinivil) 10 mg DAILY PO 10/14/17 09:00 Future Hold (Microzide) 12.5 mg DAILY PO 10/14/17 09:00 Future Hold ([place] 7.5-325 Mg) 1 tab Q4H PRN PO 10/13/17 21:15 10/15/17 08:44 Vital Signs / I&O Vital Signs Date Time Temp Pulse Resp B/P (MAP) Pulse Ox O2 Delivery O2 Flow Rate FiO2 10/15/17 08:00 97.1 73 20 129/78 (95) 98 129/82 (98) 155/91 (112) 10/15/17 07:31 60 10/15/17 03:36 98.5 89 16 118/74 (89) 99 10/14/17 23:19 98.2 74 16 115/71 (86) 98 10/14/17 20:03 98.2 86 17 124/72 (89) 97 10/14/17 16:10 98.7 79 18 125/75 (92) 99 10/14/17 15:49 18 10/14/17 12:44 97.8 76 18 126/70 (88) 97 123/77 (92) 135/87 (103) I/O 10/14/17 10/14/17 10/14/17 10/15/17 10/15/17 10/15/17 07:00 15:00 23:00 07:00 15:00 23:00 Intake Total 150 ml Balance 150 ml TPN/PPN 150 ml Physical Exam GENERAL: NAD, AAOx3 SKIN: Warm and dry. HEAD: Atraumatic. Normocephalic. EYES: Pupils equal and round. No scleral icterus. No injection or drainage. ENT: No nasal bleeding or discharge. Mucous membranes pink and moist. NECK: Trachea midline. No JVD. CARDIOVASCULAR: Regular rate and rhythm. RESPIRATORY: No accessory muscle use. Clear to auscultation. Breath sounds equal bilaterally. GASTROINTESTINAL: Abdomen soft, non-tender, nondistended. Hepatic and splenic margins not palpable. MUSCULOSKELETAL: Extremities without clubbing, cyanosis, or edema. No obvious deformities. NEUROLOGICAL: Awake and alert. No obvious cranial nerve deficits. Motor grossly within normal limits. Five out of 5 muscle strength in the arms and legs. Normal speech. PSYCHIATRIC: Appropriate mood and affect; insight and judgment normal. Assessment and Plan Problem List: (1) Syncope ICD Codes: R55 - Syncope and collapse (2) HTN (hypertension) ICD Codes: I10 - Essential (primary) hypertension (3) Chronic back pain ICD Codes: M54.9 - Dorsalgia, unspecified; G89.29 - Other chronic pain Assessment and Plan 1) Syncope Seen by Dr. Yanes, unable to do EP study yesterday Plan for discharge home today, and Dr. Yanes will have patient called on Tuesday to most likely schedule for Wed Discussed with patient that he is to not drive until further evaluation by Dr. Yanes, and await his further recommendations based on what is found during the EP study 2) Cardiovascularly stable for discharge Rolando Castle DO Oct 15, 2017 11:27
[2017-10-15 12:00] VITALS: BP 123/70; PULSE 78; RESP 20; TEMP 97.3; O2SAT 95
--- NOTE | 2017-10-16 00:31 | HM ---
Date Performed: 10/14/2017 Time Performed: 09:54:00 HOOKUP DATE: 10/14/17 09:54:00 AM Fri ANALYSIS START TIME: 10/14/2017 9:59:00 AM ANALYSIS END TIME: 10/15/2017 9:47:05 AM PATIENT AGE: 52 PATIENT HEIGHT: 73 PATIENT WEIGHT: 198 DRUG LIST: ROOM H88 PATIENT DIAGNOSIS: SYNCOPE/TACHYCARDIA TEST NARRATIVE: The patient's average heart rate was 82 BPM. Heart rates greater than 120 B PM were noted 1% of the time. No episodes of bradycardia were noted. No pauses exceeding 2.0 sec onds were noted. 60 ventricular ectopics, which represented < 1% of the total beat count, were no ama. The highest ventricular ectopic frequency occurred from 05:00 PM to 06:00 PM Fri. During this time 7 VE(s) occurred. Ventricular ectopics were observed as 60 isolated beat(s) only. No couplets or runs were noted. 9 supraventricular ectopics, which represented < 1% of the total beat count, were noted. The highest supraventricular ectopic frequency occurred from 12:00 AM to 01:00 AM Sat. During this time 9 SVE(s) occurred. No episodes of ST depression (defined as -1.0 mm or more) wer e noted in channel 1. No episodes of ST depression (defined as -1.0 mm or more) were noted in channe l 2. No episodes of ST depression (defined as -1.0 mm or more) were noted in channel 3. NO DIARY ENT SONYA WERE RECORDED BY THE PATIENT TEST INTERPRETATION: 1) Underlying Sinus rhythm 2) Rare PVC/PAC 3) No pauses noted 4) Tachycardia noted, most likely sinus tachycardia 5) One episod e of narrow complex tachycardia for around 10 beats, possible PAT 6) No diary returned for review Signed by : Rolando Castle
== END 2017-10-15 12:00 | disposition home or self-care (01) ==
LOC: NEPE 15:46 → NEDA 19:30 → NEPHCDU 21:42
PROVIDERS: ADMIT Hospitalist; ATTEND Hospitalist
DX: R55 Syncope and collapse (principal); E87.1 Hypo-osmolality and hyponatremia; D72.829 Elevated white blood cell count, unspecified; R00.0 Tachycardia, unspecified; I10 Essential (primary) hypertension; R42 Dizziness and giddiness; R61 Generalized hyperhidrosis; M54.9 Dorsalgia, unspecified; G89.29 Other chronic pain; Z79.899 Other long term (current) drug therapy
CPT/HCPCS: 80048; 80307; 82550; 84484; 85025; 93005; 93225; 93226; 93306; 93880; 96360; 97162; 99285; G0378; G8987; G8988; J7030

== ENCOUNTER 2017-10-19 06:00 | Day surgery (SDC) | payer SELFPAY ==
[~2017-10-19] VITALS: Ht 185.4 cm; Wt 81.4 kg
[~2017-10-19 06:00] MED LIST: TYLETAB34 PO
[2017-10-19] MEDS ORDERED: LISI20TA3 PO (06:23)
[2017-10-19] MEDS ORDERED: POVIDONE IODINE 5% (ANTISEPSIS KIT) 4 APPLICATIONS EACH NARE PRN (06:30)
[2017-10-19] MEDS ORDERED: ceFAZolin 2 GM PREMIX 50 ML IV SCH (06:30)
[2017-10-19] MEDS ORDERED: LORazepam 1 MG TAB SL SCH (06:30)
[2017-10-19] MEDS ORDERED: LACTATED RINGER'S 1000 ML IV PRN (06:30)
[2017-10-19] MEDS ORDERED: SODIUM CHLORID 0.9% 500 ML IV PRN (06:30)
[2017-10-19] MEDS ORDERED: MUPIROCIN 2% OINT 1 APPLIC/GM SYR NASAL SCH (06:30)
[2017-10-19] MEDS ORDERED: CHLORHEXIDINE GLUCONATE 2 % 1 PACK (2 CLOTHS) TOPICAL SCH (06:30)
[2017-10-19] MEDS ORDERED: METOPROLOL TARTRATE 25 MG TAB PO PRN (06:30)
[2017-10-19] MEDS ORDERED: NS 1000 ML IV SCH (06:30)
[2017-10-19] MEDS ORDERED: CHLORHEXIDINE GLUCONATE 2 % 1 PACK (2 CLOTHS) TOPICAL PRN (06:30)
[2017-10-19] MEDS ORDERED: POVIDONE IODINE 5% (ANTISEPSIS KIT) 4 APPLICATIONS EACH NARE SCH (06:30)
[2017-10-19 06:46] VITALS: BP 150/98; PULSE 81; RESP 18; TEMP 98.1; O2SAT 99
[2017-10-19 07:11] LABS: AUTOMATED NEUTROPHIL # 2.5 TH/MM3 (1.8-7.7); BASOPHIL # 0.1 TH/MM3 (0-0.2); EOSINOPHIL # 0.1 TH/MM3 (0-0.4); HEMOGLOBIN 14.1 GM/DL (13.0-17.0); LYMPHOCYTE # 1.9 TH/MM3 (1.0-4.8); MEAN CELL VOLUME 89.3 FL (80.0-100.0); MEAN CORPUSCULAR HEMOGLOBIN 32.3 PG (27.0-34.0); MEAN PLATELET VOLUME 8.3 FL (7.0-11.0); MONO % 10.6 % (0.0-8.0); MONOCYTE # 0.5 TH/MM3 (0-0.9); NEUT % 49.4 % (16.0-70.0); PLATELET COUNT 287 TH/MM3 (150-450); RED BLOOD COUNT 4.36 MIL/MM3 (4.50-5.90); RED CELL DISTRIBUTION WIDTH 12.5 % (11.6-17.2); WHITE BLOOD COUNT 5.1 TH/MM3 (4.0-11.0)
[2017-10-19 07:19] LABS: MEAN CORPUSCULAR HGB CONC 36.1 % (32.0-36.0)
[2017-10-19 07:22] LABS: INTERNATIONAL NORMALIZED RATIO 1.1 RATIO; PROTHROMBIN TIME - PATIENT 11.4 SEC (9.8-11.6)
[2017-10-19 07:38] LABS: BICARBONATE 26.7 MEQ/L (21.0-32.0); CALCIUM 9.2 MG/DL (8.5-10.1); CREATININE 0.94 MG/DL (0.60-1.30)
[2017-10-19] MEDS ORDERED: LIDOCAINE HCL 1% PF 30 ML VIAL ONE (11:36)
[2017-10-19] MEDS ORDERED: MIDAZOLAM HCL 2 MG/2 ML VIAL ONE (11:43)
--- NOTE | 2017-10-19 11:55 | EKG ---
Date Performed: 10/19/2017 Time Performed: 07:08:38 PTAGE: 52 years EKG: Sinus rhythm Normal ECG PREVIOUS TRACING : 10/13/2017 16.33 Since the previous tracing, no significant change noted DOCTOR: Papi Silva Interpretating Date/Time 10/19/2017 11:53:42
[2017-10-19] MEDS ORDERED: PROPOFOL 200 MG/20 ML AMP IV ONE (12:00)
[2017-10-19] MEDS ORDERED: SUCCINYLCHOLINE CHLORIDE 100 MG/5 ML SYRINGE IV PUSH ONE (12:00)
[2017-10-19] MEDS ORDERED: BACITRACIN OINT 0.9 GM PKT TOP ONE (12:15)
[2017-10-19] MEDS ORDERED: SODIUM CHLOR 0.9% 250 ML INJ 250 ML IV PRN (12:15)
[2017-10-19] MEDS ORDERED: ATROPINE SULFATE 1 MG/ML VIAL IV PUSH PRN (12:15)
[2017-10-19] MEDS ORDERED: LIDOCAINE HCL 1% 50 ML VIAL INFIL PRN (12:15)
[2017-10-19] MEDS ORDERED: ONDANSETRON HCL 4 MG/2 ML VIAL IV PUSH PRN (12:15)
[2017-10-19] MEDS ORDERED: LORazepam 2 MG/ML VIAL IV PUSH PRN (12:15)
[2017-10-19] MEDS ORDERED: oxyCODONE/ACETAMINOPHEN 5 MG/325 MG TAB PO PRN ×2 (12:15)
--- NOTE | 2017-10-19 12:16 | CATHPROC ---
Patient Name: URVASHI HERNANDEZ Study #: [id number] Initial MD: Marco Yanes Date of : 1965 Study Date: 10/19/2017 Cardiac Catheterization Report 10/19/2017 12:15:34 PM Financial #: [id number] 1 of 7 Patient Name: URVASHI HERNANDEZ Study #: [id number] Initial MD: Marco Yanes Date of : 1965 Study Date: 10/19/2017 Entire Case Report Patient Information Patient Name URVASHI HERNANDEZ Date of 1965 Age 52 years Financial # [id number] Gender M AlternateID Lab Number 2 Room Number DC02 Height (in) 73.0 Height (cm) 185.4 BSA 2.05 Weight (lbs) 179.1 Weight (kg) 81.4 Patient Address/Phone Number Home Address [facility] Home Phone Number [address] [facility] [id number] Study Information Study Number Admission Scheduled Start Study Start [id number] Oct 19 2017 6:00AM 10/19/2017 Oct 19 2017 11:13AM [place] [facility] Electrophysiology Study Admit Source Facility Department Other [facility] - Chemistry Quality Control Analyst Physician and Clinical Staff Initial Marco Lee Barber Tool Sharpener Chuck ZaldivarRT(R) Other Rabia Cespedes,DIVINA Recorder Paula Rice RN Scrub Opal CazaresRT(R) TECH2 Procedures Performed Procedure Ablation Procedure 10/19/2017 12:15:34 PM Financial #: [id number] 2 of 7 Patient Name: URVASHI HERNANDEZ Study #: [id number] Initial MD: Marco Yanes Date of : 1965 Study Date: 10/19/2017 Equipment Time Clockmaker Description Size Mfg Part Number Used/Scraped [id number] 11:17 [employer] PACK, CCL CUSTOM * Used *[id number] 11:17 [employer] PACER HARDY, LIMB * 2530 *[id number] Used [id number] 11:17 [employer] BLANKET,WARM AIR CCL * Used *[id number] 11:16 [employer] MED[employer] CATHETER, JSN, QUAD FR 5 Used *[id number] 11:16 [employer] MED[employer] CATHETER, JSN, QUAD FR 5 Used *[id number] 11:16 [employer] MED[employer] CATHETER, JSN, QUAD FR 5 Used *[id number] 11:16 [employer] MED[employer] CATHETER, JSN, QUAD FR 5 Used *[id number] 11:17 [employer] MED[employer] SHEATH, EPS, FR5 FAST CATH FR 5 Used *[id number] 11:17 [employer] MED[employer] SHEATH, EPS, FR5 FAST CATH FR 5 Used *[id number] 11:17 [employer] MED[employer] SHEATH, EPS, FR5 FAST CATH FR 5 Used *[id number] 11:17 [employer] MED[employer] SHEATH, EPS, FR6 FAST CATH FR 6 Used *[id number] Insurance Information Insurance Payor None Third Democrat Third [employer] Number SELF PAY SP Labs Hgb (g/dl) Hct (%) RBC (MIL/MM3) WBC (l/cumm) Platelets (thousands) 11.60-17.00 35.00-51.00 4.00-5.90 4.00-11.00 150.00-450.00 14.1 39 4.4 5.1 287 Glucose (mg/dl) BUN (mg/dl) Creatinine (mg/dl) BUN:Creatinine (1:x) 74.00-106.00 7.00-18.00 0.50-1.30 10.00-20.00 90 11 0.9 12.2 Na (meq/l) K (meq/l) 136.00-145.00 3.50-5.10 141 3.6 INR (PTT:PT) 0.90-1.10 1.1 10/19/2017 12:15:34 PM Financial #: [id number] 3 of 7 Patient Name: URVASHI HERNANDEZ Study #: [id number] Initial MD: Marco Yanes Date of : 1965 Study Date: 10/19/2017 Medication Medication Total Dose (Bolus/Oral) Medication Total Dosage/Unit 1% XYLOCAINE 20 mL Medications (Bolus/Oral) Medication Time Given Dosage/Unit Administered By Reason 1% XYLOCAINE 10/19/2017 11:53:46 AM 20 mL Marco Yanes 20 mL 1% XYLOCAINE given in lab by Marco Yanes in Right Groin via Subcutaneous. Initial Case Assessment Cardiovascular HR NIBP 83 146/92 Edema Present Skin color Skin None Normal Warm Dry Circulatory - Right Pulses Dorsalis Pedis 1 Scale (0,1,2,3,4,d) Circulatory - Left Pulses Dorsalis Pedis 1 Scale (0,1,2,3,4,d) Circulatory - Lower Extremities Color Lower Right Color Lower Left Normal Normal Neurological State Oriented to time-place- Alert Moves all extremities person Respiration - General Respiration Rate SpO2 (%) (B/min) 18 100 10/19/2017 12:15:34 PM Financial #: [id number] 4 of 7 Patient Name: URVASHI HERNANDEZ Study #: [id number] Initial MD: Marco Yanes Date of : 1965 Study Date: 10/19/2017 Final Case Assessment Cardiovascular HR Rhythm NIBP Chest Pain 76 SR 125/75 0 Edema Present Skin color Skin None Normal Warm Dry Circulatory - Right Pulses Dorsalis Pedis 1 Scale (0,1,2,3,4,d) Circulatory - Left Pulses Dorsalis Pedis 1 Scale (0,1,2,3,4,d) Neurological State Oriented to time-place- Alert Moves all extremities person Respiration - General Respiration Rate SpO2 (%) (B/min) 18 100 Chronological Log Time Study Chronological Log 11:24:25 Patient arrived via Bed. 11:24:26 Patient Name, D.O.B, / Armband Verified By R.N. 11:24:27 Consent signed by the physician and the patient and verified by the Chemistry Quality Control Analyst staff. 11:24:28 Pre-op and post- op instructions given; patient acknowledges understanding of instructions. 11:24:29 Verbal Stimulation=2 Physical Stimulation=2 Airway=2 Respiration=2 TOTAL=8. (0=absent, 1=li mited, 2=present) 11:24:32 Patient has been NPO for More than 6Hrs. 11:24:33 Skin Breakdown- None per patient. 11:24:33 Patient Warmer Placed on the Table. 11:24:34 Disposable Defibrillator Pads Placed On Patient. 11:24:35 Sia Prominences Protected 11:24:42 History and physical on the chart. 11:25:38 A # 20 IV was noted in the Forearm (right). Grade = 0 0.9% NaCl @ KVO 10/19/2017 12:15:34 PM Financial #: [id number] 5 of 7 Patient Name: URVASHI HERNANDEZ Study #: [id number] Initial MD: Marco Yanes Date of : 1965 Study Date: 10/19/2017 11:25:40 A # 20 IV was noted in the Antecubital (left). Grade = 0 .9% NaCl @ KVO 11:26:00 Anesthesia at bedside. Assumes care of patient. 11:30:37 Anesthesia at bedside. Assumes care of patient. Assessment: Initial Case, HR=83 BPM, HUEX=621/92 mmhg, Edema=None, Color=Normal, Skin = Warm, D ry Right Pulses: [place] Ped=1 Left Pulses: [place] Ped=1 11:36:33 Lower Right Extremities: Color=Normal Lower Left Extremities: Color=Normal Neurological: State=Alert, Ox3, KATZ Respiration: Resp=18 B/min, SfB8=851 % 11:38:32 Table restraints applied according to hospital policy Time Out. Correct patient, procedure, procedure equipment, site and side verified with physicia n present. Time 11:51:45 concurred by MD, individual staff and COPY CLERK. Time Out #2 - Consents verified, patient in correct position, all results are labled and displa yed, safety precautions 11:51:47 taken, antibiotics administered. Time out concurred by MD, individual staff and COPY CLERK in procedu re 11:52:10 Case Start 11:53:46 20 mL 1% XYLOCAINE given in lab by Marco Yanes in Right Groin via Subcutaneous. 11:55:19 Vascular access was obtained in the Fem Vein (right). 11:55:23 Vascular access was obtained in the Fem Vein (right). 11:55:23 Vascular access was obtained in the Fem Vein (right). 11:55:23 Vascular access was obtained in the Fem Vein (right). 11:56:23 A SHEATH, EPS, FR5 FAST CATH FR 5 was advanced into the Fem Vein (right) using the Modified Seldinger technique. 11:56:30 A SHEATH, EPS, FR5 FAST CATH FR 5 was advanced into the Fem Vein (right) using the Modified Seldinger technique. 11:56:38 A SHEATH, EPS, FR5 FAST CATH FR 5 was advanced into the Fem Vein (right) using the Modified Seldinger technique. 11:56:40 A SHEATH, EPS, FR6 FAST CATH FR 6 was advanced into the Fem Vein (right) using the Modified Seldinger technique. A CATHETER, JSN, QUAD FR 5 was advanced vis Fem Vein (right) and placed in the CS. Placement wa s visually 11:56:50 confirmed under fluoroscopy. A CATHETER, JSN, QUAD FR 5 was advanced vis Fem Vein (right) and placed in the HIS. Placement w as visually 11:57:01 confirmed under fluoroscopy. A CATHETER, JSN, QUAD FR 5 was advanced vis Fem Vein (right) and placed in the HRA. Placement w as visually 11:57:06 confirmed under fluoroscopy. A CATHETER, JSN, QUAD FR 5 was advanced vis Fem Vein (right) and placed in the RVA. Placement w as visually 11:57:11 confirmed under fluoroscopy. 12:01:04 ep study in progress 12:11:43 AFIB INDUCED 12:13:38 EP STUDY COMPLETE 12:13:56 Ablation procedure performed: AFIB. 12:14:03 EP Procedure was performed. Assessment: Final Case, HR=76 BPM, Rhythm=SR, TAKC=206/75 mmhg, Chest Pain=0, Edema=None, Color =Normal, Skin = Warm, Dry Right Pulses: [place] Ped=1 12:14:24 Left Pulses: [place] Ped=1 Neurological: State=Alert, Ox3, KATZ Respiration: Resp=18 B/min, XlE2=257 % 10/19/2017 12:15:34 PM Financial #: [id number] 6 of 7 Patient Name: URVASHI HERNANDEZ Study #: [id number] Initial MD: Marco Yanes Date of : 1965 Study Date: 10/19/2017 End Study - Contrast Media Used In Study Contrast Total Opened (mL) Total Used (mL) Total Wasted (mL) Unspecified 0 0 0 End Study - Maximum Contrast Load Max Contrast Load (mL) 452.3 End Study - Radiation Exposure Fluoro Time (minutes) 0.7 End Study - Patient Disposition Complications Transferred To Interventional Outcome No Telemetry Bed successful 10/19/2017 12:15:34 PM Financial #: [id number]
--- NOTE | 2017-11-08 16:25 | MA ---
cc: Marco Yanes MD, Jose R MD DATE: 10/19/2017 PROCEDURE PERFORMED: Electrophysiologic study, CS cannulation, 3-D mapping. INDICATIONS: Mr. Schulz is a 51-year-old gentleman with history of tachyarrhythmia, previous hospitalization with an episode of near-syncope, referred for electrophysiology study and ablation. The risks, the nature and the benefits of the procedure are clearly stated to him. The risks include pneumothorax, cardiac perforation, stroke, need for open heart surgery and even . He understood and agreed to proceed. PROCEDURE: After written informed consent was obtained, the patient was brought to the EP Lab where he was prepped and draped in the usual surgical fashion. Conscious sedation was initiated and maintained throughout the procedure by the anesthesiologist. Once sedation was verified, the right inguinal area was anesthetized with 2% Xylocaine. Using modified Seldinger technique, the right femoral vein was cannulated on four occasions, four guidewires were advanced. Over the wire, three 5 and a 6-[place] Hemaquet were advanced. Then, under fluoroscopic guidance through the 5 and 6-[place] hematocrit, four 5-[place] Dayron curved quadripolar electrophysiology catheters advanced on the His, upper right atrium, coronary sinus and the right ventricular apex. Basic intervals were measured. They were within normal limits. At this point, atrial pacing protocol was performed. Atrial pacing protocol consisted of incremental atrial pacing as well as program stimulation of 410 cycle length and up to an extrastimuli delivered. During the atrial pacing protocol, the patient went into atrial fibrillation. The patient was cardioverted. Again the patient went into atrial fibrillation requiring cardioversion. Ventricular pacing protocol was performed. No tachyarrhythmia was induced. At that point, the procedure was complete. All catheters were removed as well as the hemaquets. The patient's arrhythmia is atrial fibrillation. The patient is going to need to be anticoagulated and subsequently readmitted for atrial fibrillation ablation. The case will be discussed with the patient. No incident to reported. The patient tolerated the procedure. Blood loss minimal. 1. ELECTROCARDIOGRAM: At baseline, the patient was in sinus. Post-procedure electrocardiogram was unchanged. 2. BASIC INTERVAL: Base cycle length was around 764 milliseconds, AH at 74, HV was around 40 milliseconds. 3. ATRIAL PACING PROTOCOL: Atrial fibrillation was induced. 4. VENTRICULAR PACING PROTOCOL: No tachyarrhythmia was induced. CONCLUSION: Positive electrophysiology study for atrial fibrillation. COMMENT AND RECOMMENDATIONS: The atrial fibrillation matched the patient's arrhythmia. This is most likely the cause of syncope and palpitation. As mentioned before, the gentleman is going to be anticoagulated and we will reschedule for atrial fibrillation ablation. Also, the case needs to be discussed with him before ablation attempt. 3-D mapping used during the procedure for catheter placement. MD ANA Page/KEISHA , 03:31 PM , 04:24 PM
== END 2017-10-19 17:33 | disposition home or self-care (01) ==
LOC: HDOC 06:00 → HDIC 06:01 → HDOC 17:33
PROVIDERS: ATTEND Internal Medicine Interventional Cardiology
DX: I48.91 Unspecified atrial fibrillation (principal); I10 Essential (primary) hypertension
CPT/HCPCS: 01920; 80048; 85025; 85610; 85730; 86850; 86900; 86901; 93005; 93620; 93623; C1730; J0330; J2250; J3010